=== PATIENT | female | born 1985 | race Asian ===

== ENCOUNTER 2025-06-08 10:55 | Emergency (ER) | payer OTHER ==
[~2025-06-08] VITALS: Ht 153 cm; Wt 54.5 kg
[2025-06-08 11:10] VITALS: TEMP 98.6
[2025-06-08 11:36] LABS: PLATELET COUNT (AUTO) 354 K/uL (150-450); RED BLOOD CELL COUNT(AUTO) 4.67 MIL/uL (4.00-5.20); RED CELL DISTRIBUTION WIDTH 13.0 % (11.5-14.5); WHITE BLOOD COUNT (AUTO) 7.0 K/uL (4.5-11.0)
[2025-06-08 11:43] LABS: CALCIUM, TOTAL 8.5 mg/dL (8.8-10.5); CREATININE 0.64 mg/dL (0.60-1.30); GLOMERULAR FILTR. RATE CALC > 60 mL/min (>60); GLUCOSE,RANDOM 100 mg/dL (70-110); SODIUM SERUM 139 mmol/L (136-145); UREA NITROGEN, BLOOD 11 mg/dL (7-18)
[2025-06-08 11:50] LABS: ASPARTATE AMINOTRANSFERASE 19.0 U/L (15-37); TOTAL PROTEIN, SERUM 6.8 g/dL (6.4-8.2)
[2025-06-08 11:54] LABS: TROPONIN I-HIGH SENSITIVITY 4 ng/L (<51)
[2025-06-08 12:10] LABS: COVID AG,FIA SOURCE NASAL SWAB
[2025-06-08] MEDS: SODIUM CHLORIDE 0.9% 1,000 ML IV ONE (12:31)
[2025-06-08 12:42] LABS: APPEARANCE,URINE HAZY (CLEAR); GLUCOSE, URINE (UA) NEGATIVE (NEGATIVE); LEUKOCYTE ESTERASE ,URINE NEGATIVE (NEGATIVE); NITRATE,URINE NEGATIVE (NEGATIVE); OCCULT BLOOD,URINE TRACE (NEGATIVE); SPECIFIC GRAVITIY, URINE 1.017 (1.003-1.030)
[2025-06-08 12:44] LABS: INFLUENZA TYPE A NEGATIVE FOR TYPE A (NEGATIVE); INFLUENZA TYPE B NEGATIVE FOR TYPE B (NEGATIVE); SARS-COV2 (COVID) ANTIGEN,FIA Negative (Negative)
[2025-06-08 12:47] LABS: SQUAMOUS EPITHELIAL CELL,UR Few /LPF (None Seen)
[2025-06-08 13:24] VITALS: BP 112/65; PULSE 60; RESP 18; O2SAT 99
== END 2025-06-08 13:26 | disposition home or self-care (01) ==
LOC: EMS 10:55
DX: R53.1 Weakness (principal); R42 Dizziness and giddiness; R06.02 Shortness of breath; Z20.822 Contact with and (suspected) exposure to COVID-19
CPT/HCPCS: 99285; 71045; 87426; 80048; 80076; 81001; 83880; 84484; 84703; 85025; 85379; 87804; 36415; 93005; J7030